=== PATIENT | female | born 1940 | race Caucasian/White ===

== ENCOUNTER → 2017-06-23 | Outpatient (CLI) | payer OTHER ==
--- NOTE | 2017-06-24 08:02 | DI ---
History: Right knee pain Comparison: July 29, 2009 Findings: There are degenerative osteophytes around all articular compartments of the knee. There is medial compartment narrowing There is no fracture No joint effusion is evident. 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 Osteophyte formation has increa sed since previous study of July 29, 2009, but there've been no other significant changes
== END ==
LOC: ORTHO 16:28
PROVIDERS: ATTEND Orthopaedic Surgery
DX: M25.561 Pain in right knee (principal); M17.11 Unilateral primary osteoarthritis, right knee; M24.661 Ankylosis, right knee
CPT/HCPCS: 73564; 99203